=== PATIENT | male | born 1985 | race African-American/Black ===

== ENCOUNTER 2020-08-18 10:41 | Emergency (ER) | payer OTHER, SELFPAY ==
[2020-08-18 11:00] VITALS: BP 182/86; PULSE 91; RESP 16; TEMP 36.6; O2SAT 99
[2020-08-18] MEDS: LIDOCAINE/PRILOCAINE CREAM 2.5-2.5% TUBE 1 EACH TOPICAL (11:17)
--- NOTE | 2020-08-18 11:18 | ED.SKABFB ---
HPI - Skin/Abscess/Foreign Bdy General Chief complaint: Skin/Abscess/Foreign Body Stated complaint: lump under left arm Source: patient and RN notes reviewed Limitations: no limitations History of Present Illness HPI narrative: The patient, previously mostly healthy, presents with abscess. Patient states he has had sporadic axillary abscesses in the past. He now has 1/2-month history of left armpit pain and swelling that is mild, worse with compression, better at rest. No fever, spontaneous discharge [despite manipulation], streaking. Desires I&D, advised he may follow-up at hospital-based wound care clinic. Related Data Home Medications Medication Instructions Recorded Confirmed albuterol 08/18/20 Allergies Allergy/AdvReac Type Severity Reaction Status Date / Time amoxicillin Allergy Unknown Unverified 01/23/15 02:50 prednisone Allergy Unknown Unverified 01/23/15 02:50 Review of Systems Review of Systems: Narrative: The patient has been informed that they may have pre-hypertension or Hypertension based on a BP reading in the department. I recommend that the patient call the primary care provider listed on their discharge instructions or a physician of their choice this week to arrange follow up for further evaluation of possible pre-hypertension or Hypertension General/Constitutional: No weight loss,fever Eyes: N0: Redness,discharge Ears/Nose/Throat: No: Epistaxis,ear discharge Respiratory: Denies: Hemoptysis Gastrointestinal: No Vomiting, Bleeding-rectal Skin: No Lumps, eruption Neurologic: No Focal Weakness,Sz Hematologic: Denies: Petechiae/Purpura Psychiatric: No: Suicida ideationl All Other Systems: Reviewed and Negative PMFSH Comments At time of signature, agree with nursing past medical, surgical, social and family history. There is no relevant family history pertinent to the presenting complaint Exam Narrative: Exam Narrative: General Appearance: Well appearing, No distress EYE: PERRLA, Conjunctiva clear Mouth/Throat: Normal appearing, Normal lips Supple Skin: 1 x 2 inch axillary abscess without streaking, lymphadenitis ;warm, Dry Respiratory: Airway patent, No respiratory distress Musculoskeletal: Full ROM Neurological: A&O x3, CN II-X intact Psychiatric: Normal mood, Normal affect Course Vital Signs Vital signs: Vital Signs Temperature 97.8 F 08/18/20 11:00 Pulse Rate 91 08/18/20 11:00 Respiratory Rate 16 08/18/20 11:00 Blood Pressure 182/86 H 08/18/20 11:00 Pulse Oximetry 99 08/18/20 11:00 Temperature 97.8 F 08/18/20 11:00 Pulse Rate 91 08/18/20 11:00 Respiratory Rate 16 08/18/20 11:00 Blood Pressure 182/86 H 08/18/20 11:00 Pulse Oximetry 99 08/18/20 11:00 Procedures Abscess I/D upper extremity: Date of Incision: 08/18/20 Side (if applicable): left Local Anesthetic: other anesthetic (EMLA topically) Technique: incised with #15 blade Irrigation: No Packing used?: none I&D Results: Pus and Blood Complications: pain Discharge Plan Discharge Clinical Impression: Abscess of skin or subcutaneous tissue Qualifiers: Site of cutaneous abscess: extremity Site of cutaneous abscess of extremity: axilla Laterality: left Qualified Code(s): L02.412 - Cutaneous abscess of left axilla Patient Disposition: Home, Self-Care Condition: Improved Instructions: Antibiotic Form, Abscess (ED) Prescriptions: New acetaminophen-codeine 300-30 mg tablet 1 tablet PO HS PRN (Reason: pain) Qty: 10 RF: 0 clindamycin HCl 300 mg capsule 300 mg PO TID Qty: 15 RF: 0 clindamycin HCl 300 mg capsule 300 mg PO TID Qty: 15 RF: 0 No Action albuterol RF: 0 Follow-up/Referrals: UNKNOWN,DOCTOR [Primary Care Provider] -
--- NOTE | 2020-08-18 11:36 | PC.NURSE ---
provider in to do i and d.
== END 2020-08-18 11:56 | disposition home or self-care (01) ==
PROVIDERS: Emergency Provider Emergency Medicine
DX: R22.32 Localized swelling, mass and lump, left upper limb (principal); L02.412 Cutaneous abscess of left axilla; J45.909 Unspecified asthma, uncomplicated
CPT/HCPCS: 10060; 99203; G0463